=== PATIENT | female | born 1995 | race Caucasian/White ===

== ENCOUNTER 2023-12-18 08:49 | Inpatient (IN) | payer OTHER ==
[2023-12-18] MEDS ORDERED: ACETAMINOPHEN INJECTION 100 ML IVPB ONE ×2 (09:51→14:57)
[2023-12-18] MEDS ORDERED: ONDANSETRON 4 MG/2 ML VIAL ONE ×3 (09:52→15:01)
[2023-12-18] MEDS: SODIUM CHLORIDE 0.9% 1000 ML INFUS.BAG IV ONE (10:09)
[2023-12-18] MEDS: ONDANSETRON 4 MG/2 ML VIAL IVPUSH ONE ×2 (10:09→11:18)
[2023-12-18] MEDS: ACETAMINOPHEN 1000 MG/100 ML BAG IVPB ONE (10:09)
[2023-12-18 10:25] LABS: BASO % 0.8 % (0-2.0); EOS % 0.4 % (0-4.5); HEMATOCRIT 46.1 % (32.4-45.2); HEMOGLOBIN 15.8 GM/dL (10.7-15.3); LYMPH % 14.7 % (8-40); MCH 30.5 pg (25.7-33.7); MCHC 34.4 g/dl (32.0-36.0); MEAN CELL VOLUME 88.8 fl (80-96); MEAN PLT VOLUME 8.2 fl (7.5-11.1); MONO % 8.5 % (3.8-10.2); NEUT % 75.6 % (42.8-82.8); PLATELET COUNT 353 10^3/uL (134-434); RBC 5.19 M/mm3 (3.60-5.2); RDW 13.4 % (11.6-15.6); WHITE BLOOD COUNT 10.2 K/mm3 (4.0-10.0)
[2023-12-18 10:53] LABS: LACTIC ACID 2.9 mmol/L (0.4-2.0)
[2023-12-18 11:07] LABS: POTASSIUM 4.3 mmol/L (3.5-5.1)
[2023-12-18 11:10] LABS: ALBUMIN 4.8 g/dl (3.4-5.0); BLOOD UREA NITROGEN 21.5 mg/dL (7-18); CALCIUM 11.1 mg/dL (8.5-10.1)
[2023-12-18 11:13] LABS: CREATININE 1.2 mg/dL (0.55-1.3)
[2023-12-18] MEDS ORDERED: KETOROLAC TROMETHAMINE 15 MG/ML VIAL ONE (11:14)
[2023-12-18 11:15] LABS: TOT PROT 8.8 g/dl (6.4-8.2)
[2023-12-18] MEDS: SODIUM CHLORIDE 0.9% 500 ML INFUS.BAG IV ONE (11:17)
[2023-12-18] MEDS: KETOROLAC TROMETHAMINE 15 MG/ML VIAL IVPUSH ONE (11:18)
[2023-12-18] MEDS ORDERED: morphine SULFATE 4 MG/ML VIAL ONE (13:41)
[2023-12-18] MEDS ORDERED: METOCLOPRAMIDE HCL INJECTION 10 MG/2 ML VIAL ONE (13:41)
[2023-12-18] MEDS: METOCLOPRAMIDE HCL INJECTION 10 MG/2 ML VIAL IVPB ONE (13:56)
[2023-12-18] MEDS: morphine CARPU-JECT 4 MG/1 ML DISP.SYRIN IVPUSH ONE (13:56)
[2023-12-18] MEDS ORDERED: LIDOCAINE HCL 2% JELLY 11 ML TP ONE (14:13)
[2023-12-18 14:43] LABS: INR 1.19 (0.83-1.09); PROTHROMBIN TIME (PATIENT) 13.4 SEC (9.7-13.0)
[2023-12-18 14:46] LABS: ACTIVATED PTT 28.4 SECONDS (25.2-36.5)
[2023-12-18] MEDS ORDERED: ROCURONIUM BROMIDE 50 MG/5 ML SYRINGE ONE (15:00)
[2023-12-18] MEDS ORDERED: SUCCINYLCHOLINE CHLORIDE 200 MG/10 ML SYRINGE ONE (15:00)
[2023-12-18] MEDS ORDERED: LIDOCAINE HCL/PF 2% SDV 5ML VIAL ONE (15:01)
[2023-12-18] MEDS ORDERED: DEXAMETHASONE SOD PHOSPHATE 4 MG/1 ML VIAL ONE (15:01)
[2023-12-18] MEDS ORDERED: KETOROLAC TROMETHAMINE 30 MG/1 ML VIAL ONE (15:01)
[2023-12-18 15:03] LABS: MAGNESIUM 2.4 mg/dL (1.8-2.4)
[2023-12-18] MEDS ORDERED: MIDAZOLAM HCL 2 MG/2 ML SINGLE DOSE VIAL ONE (15:06)
[2023-12-18] MEDS ORDERED: ceFAZolin SODIUM 1 GM VIAL ONE (15:07)
[2023-12-18] MEDS ORDERED: FENTANYL CITRATE/PF 50 MCG/ML VIAL ONE ×3 (15:07→17:39)
[2023-12-18] MEDS ORDERED: BUPIVACAINE HCL/PF 0.25% (2.5MG/ML) 10 ML VIAL ONE (15:42)
[2023-12-18] MEDS ORDERED: CEFOXITIN SODIUM 1 GM IVPB ONE (15:46)
[2023-12-18] MEDS ORDERED: HEPARIN NA (PORCINE) 5,000 UNITS/ML 1ML VIAL ONE ×2 (15:47→15:51)
[2023-12-18] MEDS ORDERED: SODIUM PHOSPHATE - 15 MM in DEXTROSE 5%-WATER - 250 ML IVPB ONE (15:51)
[2023-12-18] MEDS: cefOXitin SODIUM 2 GM VIAL (RESTRICTED TO ID) IVPB ONE (16:00)
[2023-12-18] MEDS: BUPIVACAINE HCL/PF 0.25% (2.5MG/ML) 10 ML VIAL IJ ONE (16:24)
[2023-12-18] MEDS ORDERED: PROMETHAZINE HCL 25 MG/1 ML VIAL IVPB PRN ×2 (17:13→17:30)
[2023-12-18] MEDS ORDERED: LACTATED RINGERS SOLUTION 1,000 ML IV SCH (17:15)
[2023-12-18] MEDS: PIPERACILLIN/TAZOB 4.5 GM 4.5 GM in DEXTROSE 5%-WATER 100 ML IVPB ONE (17:54)
[2023-12-18] MEDS: LIDOCAINE HCL 2% JELLY (30 ML/TUBE) TP ONE (18:23)
[2023-12-18] MEDS: LACTATED RINGERS SOLUTION 1,000 ML IV SCH (20:07)
[2023-12-18] MEDS: KETOROLAC TROMETHAMINE 15 MG/ML VIAL IVPUSH PRN (20:07)
[2023-12-18] MEDS: SODIUM PHOSPHATE - 15 MM in SODIUM CHLORIDE 250 ML IVPB ONE ×2 (20:07→20:08)
[2023-12-18] MEDS: oxyCODONE HCL 5 MG TABLET PO PRN (21:21)
[2023-12-19] MEDS: ACETAMINOPHEN 325 MG TABLET (FP) PO SCH ×2 (01:15→10:37)
[2023-12-19 08:23] LABS: BASO % 0.5 % (0-2.0); EOS % 0.1 % (0-4.5); HEMATOCRIT 34.2 % (32.4-45.2); HEMOGLOBIN 11.8 GM/dL (10.7-15.3); LYMPH % 12.9 % (8-40); MCH 30.8 pg (25.7-33.7); MCHC 34.6 g/dl (32.0-36.0); MEAN CELL VOLUME 89.1 fl (80-96); MONO % 9.6 % (3.8-10.2); NEUT % 76.9 % (42.8-82.8); PLATELET COUNT 247 10^3/uL (134-434); RBC 3.83 M/mm3 (3.60-5.2); RDW 13.1 % (11.6-15.6); WHITE BLOOD COUNT 12.9 K/mm3 (4.0-10.0)
[2023-12-19 08:45] LABS: POTASSIUM 4.1 mmol/L (3.5-5.1)
[2023-12-19 08:49] LABS: BLOOD UREA NITROGEN 18.1 mg/dL (7-18)
[2023-12-19 08:50] LABS: MAGNESIUM 1.9 mg/dL (1.8-2.4)
[2023-12-19 08:52] LABS: CREATININE 0.9 mg/dL (0.55-1.3); PHOSPHOROUS 4.6 mg/dL (2.5-4.9)
[2023-12-19 08:55] LABS: ALBUMIN 3.2 g/dl (3.4-5.0); CALCIUM 8.9 mg/dL (8.5-10.1); TOT PROT 5.9 g/dl (6.4-8.2)
[2023-12-19] MEDS: ONDANSETRON 4 MG/2 ML VIAL IVPUSH ONE (10:15)
[2023-12-19] MEDS: PIPERACILLIN/TAZOB 4.5 GM 4.5 GM in DEXTROSE 5%-WATER 100 ML IVPB ONE (10:37)
[2023-12-19] MEDS: LIDOCAINE HCL 2% JELLY (30 ML/TUBE) TP ONE (10:37)
[2023-12-19] MEDS: PROCHLORPERAZINE INJECTION 10 MG/2 ML VIAL IM ONE (12:10)
[2023-12-19] MEDS ORDERED: ACETAMINOPHEN 1000 MG/100 ML BAG IVPB PRN ×2 (14:11→14:22)
[2023-12-19 15:54] VITALS: BMI 18.4
[2023-12-20 11:58] VITALS: BP 127/88; PULSE 64; RESP 18; TEMP 98.8
== END 2023-12-20 10:30 | disposition home or self-care (01) | DRG 222 ==
LOC: JER 08:49 → JERBED 13:36 → J8W 19:49
PROVIDERS: ADMIT Internal Medicine; ATTEND Nurse Practitioner Acute Care
PROC: 0DJ64ZZ Inspection of Stomach, Percutaneous Endoscopic Approach (ICD-10-PCS; principal; 2023-12-18 15:00)
DX: K52.89 Other specified noninfective gastroenteritis and colitis (principal); L50.8 Other urticaria; E44.0 Moderate protein-calorie malnutrition; Z68.1 Body mass index [BMI] 19.9 or less, adult
CPT/HCPCS: 36415; 74177-TC; 80053; 83605; 83690; 83735; 84100; 84703; 85025; 85610; 85730; 86850; 86900; 86901; 93005; 93010; 94760; 99285-25; J0131; J1644; Q9967